=== PATIENT | female | born 1985 | race Caucasian/White ===

== ENCOUNTER 2018-01-07 03:31 | Inpatient (IN) ==
--- OUTSIDE RECORDS SUMMARY | 2018-01-07 06:06 | External Medical Summary | Continuity of Care Document ---
:1985 Author Organization [facility] Address [address] [place], [place] [id number] Phone Care Team Providers Name Role Phone Rosalind Cho MD Unavailable Unavailable Allergies, Adverse Reactions, Alerts Substance Reaction Severity Status AMOXICILLIN TRIHYDRATE bloody stools Unknown Active POTASSIUM CLAVULANATE bloody stools Unknown Active Medications Medication Instructions Dosage Effective Dates Status Comments (start - stop) Tylenol 325 mg take 1 tablet by - Active tablet oral route every 4 hours as needed 28 mg take 1 tablet by Not Available - Active iron-800 mcg oral route every tablet day Problems Condition Effective Dates (start - stop) Clinical Status Matern care for oth or susp poor fetl - grth, 2nd tri, unsp 20 weeks gestation of - Pap Smear Screening, Cervix - Encounter for suprvsn of normal - , first trimester 12 weeks gestation of - Matern care for oth or susp poor fetl - grth, 2nd tri, unsp 15 weeks gestation of - Low Lying Placenta Nos Or W/out - Hemorrhage, Second Trimester 20 weeks gestation of - Asthma Active Migraines Active Active Procedures Procedure Date Ultrasound exam of preg uterus, complete Results Test Name Date and Time Measure Units Reference Range Abnormal Flag Comments Unknown Advance Directives Directive Yes / No Effective Date File Name Unknown Encounters Encounter Practice Location Reason(s) Diagnoses Date Provider Care Description For Visit Team Members Pradeep Howard Low Lying Nov-0 [facility] In [facility]omens Placenta Nos Or 9- Mirna. Zelalem SHELL, W/out 7 700 [address], Hemorrhage, [place], [place], Second Center [id number], [id number] Bhavik Remy weeks gestation 120, tel:[phone] of [place] [address] [place], [id number] , [place]. tel: [phone] Pradeep Howard Matern care for Nov-0 [facility] Ultrasound oth or susp poor 9-201 Mirna. Zelalem SHELL, fetl grth, 2nd 7 [address], tri, unsp20 [place], weeks gestation Center [id number], of Bhavik Remy [place] 120, tel:[phone] [place] [address], [id number] , [place]. tel: [phone] Pradeep Howard Matern care for Oct-1 T[facility] In Womens oth or susp poor 0-201 Mirna. Zelalem SHELL, fetl grth, 2nd 7 700 [address], tri, unsp15 [place], weeks gestation Center [id number], of Bhavik Remy [place] 120, tel:[phone] Lee [address], [id number] , [place]. tel: [phone] Pradeep Howard Pap Smear Sep-1 [facility] In Wom[facility] Screening, [place]. Zelalem SHELL, CervixEncounter 7 700 [address], for suprvsn of [place], [place], normal Center [id number], , first Bhavik Remy [email or web address] 120, tel:[phone] weeks gestation Lee [address] of [place], [id number] , [place]. tel: [phone] Family History Family Member Diagnosis Age At Onset Maternal Grandfather Kidney Disease Brother Hypertension Maternal Grandfather Hypertension No family history of Venous Thrombosis Paternal Grandmother Breast Cancer Paternal Grandfather Cardiovascular Disease Father Cardiovascular Disease Maternal Grandmother Hypertension Paternal Grandfather Hypertension Paternal Grandfather Diabetes Paternal Grandfather Lung Disease No family history of Pulmonary Embolism Immunizations Vaccine Date Status Comments Influenza, injectable, quadrivalent, completed Source: Other Provider preservative free, 3 yrs or older Payers Payer name Insurance type Covered green party ID Authorization(s) [employer] [id number] Social History Type Description Quantity Date Captured Unknown Vital Signs Date / Height Weight BMI Pulse Blood Temperature Respiratory Body Head BMI Time: Rate Pressure Rate Surface Circumference percentile Area Unknown Chief Complaint And Reason For Visit Unknown Chief Complaint And Reason For Visit Reason For Referral Reason For Referral Unknown Plan Of Care Date Type Action Status Appointment Rachel Rudolph BOOKED Future Order: Radiology Order Complete OB Ultrasound > 14 Ordered Weeks ([id number]) Date Type Problem Goal Intervention Status Start Date Unknown. History Of Present Illness Encounter Date Complaint History Of Present Illness This patient has no known history of present illness Functional Status Encounter Date Functional Assessment Cognitive Assessment Unknown Medications Administered Medication Instructions Dosage Effective Dates (start - stop) Status Comments Drug Treatment Unknown Instructions Date Instruction Additional Information HIV and other routine tests risk factors identified by history anticipated course of care nutrition and weight gain counseling, special diet toxoplasmosis precautions (cats / raw meat) sexual activity exercise indications for ultrasound influenza vaccine environmental / work hazards travel use of any medications (including supplements, vitamins, herbs, OTC drugs) domestic violence seat belt use childbirth classes / hospital facilities hospital registration genetic testing new ob handbook Zika virus assessment & precautions
--- OUTSIDE RECORDS SUMMARY | 2018-01-07 06:06 | External Medical Summary | Continuity of Care Document ---
:1985 Author Organization [facility] Address [address] [place], [place] [phone] Phone Care Team Providers Name Role Phone [...] Effective Dates (start - stop) Clinical Status Low Lying Placenta Nos Or W/out - Hemorrhage, Second Trimester 20 weeks gestation of - Pap Smear Screening, Cervix - Encounter for suprvsn of normal - , first trimester 12 weeks gestation of - Matern care for oth or susp poor fetl - grth, 2nd tri, unsp 20 weeks gestation of - Matern care for oth or susp poor fetl - grth, 2nd tri, unsp 15 weeks gestation of - Asthma Active Migraines Active Active Procedures Procedure Date OB Visit No Charge Results Test Name Date and Time Measure Units Reference Range Abnormal Flag Comments Unknown Advance Directives Directive Yes / No Effective Date File Name Unknown Encounters Encounter Practice Location Reason(s) Diagnoses Date Provider Care Description For Visit Team Members Pradeep Howard Low Lying [facility] In W[facility]ens Placenta Nos Or 9-201 Mirna. Zelalem SHELL, W/out 7 700 [address], Hemorrhage, [place], [place], Second Center [id number], [id number] Bhavik Remy weeks gestation 120, tel:[phone] of [place] [address] [place], [id number] , [place]. tel:[phone] Pradeep Howard Matern care for Nov-0 [facility] In Womens Ultrasound oth or susp poor 9-201 Mirna. Zelalem SHELL, fetl grth, 2nd 7 700 [address], tri, unsp20 [place], [place], weeks gestation Center [id number], of Dr Bhavik [place] 120, tel:[phone] Lee [address], [id number] , [place]. tel: [phone] Pradeep Howard Matern care for Oct-1 T[facility] In Womens oth or susp poor 0-201 Mirna. Zelalem SHELL, fetl grth, 2nd 7 700 [address], tri, unsp15 [place], weeks gestation Center [id number], of Bhavik Remy [place] 120, tel:[phone] Lee [address], [id number] , [place]. tel: [phone] Pradeep Howard Pap Smear Sep-1 [facility] In Womens Screening, Mirna. Zelalem SHELL, CervixEncounter 7 700 [address], for suprvsn of [place], [place], normal Center [id number], , first Bhavik Remy [email or web address] 120, tel:[phone] weeks gestation [place] [address] of [place], [id number] , [place]. tel: [phone] Family History Family Member Diagnosis Age At [...] older Payers Payer name Insurance type Covered constitution party ID Authorization(s) [employer] [id number] Social History Type Description Quantity Date Captured Alcohol Use Details No Caffeine Use Details Unknown Tobacco Use Status Unknown Smoking Status Never smoker Vital Signs Date / Height Weight BMI Pulse Blood Temperature Respiratory Body Head BMI Time: Rate Pressure Rate Surface Circumference percentile Area 131.20 21.1 113/71 2017 lbs 7 mm[Hg] 11:08 kg/m AM eter (2) Chief Complaint And Reason For Visit Unknown Chief Complaint And Reason For Visit Reason For Referral Reason For Referral Unknown Plan Of Care Date Type Action Status Appointment Rachel Rudolph BOOKED Future Order: Radiology Order Complete OB Ultrasound > 14 Ordered Weeks ([id number]) Date Type Problem Goal Intervention Status Start [...]
--- OUTSIDE RECORDS SUMMARY | 2018-01-07 06:06 | External Medical Summary | Continuity of Care Document ---
:1985 Author Organization [facility] Address [address] [place], [place] [id number] Phone Care Team Providers Name Role Phone [...] Effective Dates (start - stop) Clinical Status Encounter for suprvsn of normal - , third trimester 34 weeks gestation of - Pap Smear Screening, Cervix - Encounter for suprvsn of normal - , first trimester 12 weeks gestation of - Matern care for oth or susp poor fetl - grth, 2nd tri, unsp 20 weeks gestation of - Matern care for oth or susp poor fetl - grth, 2nd tri, unsp 15 weeks gestation of - Matern care for oth or susp poor fetl - grth, third tri, unsp Low Lying Placenta Nos Or W/out - Hemorrhage, Third Trimester 32 weeks gestation of - Low Lying Placenta Nos Or W/out - Hemorrhage, Second Trimester 20 weeks gestation of - Low Lying Placenta Nos Or W/out - Hemorrhage, Second Trimester Encounter for suprvsn of normal - , second trimester 27 weeks gestation of - Frequency of micturition - Encounter for suprvsn of normal - , second trimester 25 weeks gestation of - Encounter for suprvsn of normal - , third trimester 32 weeks gestation of - Encounter for suprvsn of normal - , third trimester 37 weeks gestation of - Asthma Active Migraines Active Active Procedures Procedure Date OB Visit No Charge Results Test Name Date and Time Measure Units Reference Range Abnormal Flag Comments Unknown Advance Directives Directive Yes / No Effective Date File Name Unknown Encounters Encounter Practice Location Reason(s) Diagnoses Date Provider Care Description For Visit Team Members Pradeep Howard Encounter for Mar-0 [facility] suprvsn of normal 9-201 [facility] [place], , third 8 700 [email or web address] weeks Medical 1522, gestation of [facility] Bhaivk Remy, 120, [id number], [facility] [place], tel:[phone] , [place]. tel:[phone] Pradeep Howard Encounter for Feb-2 [facility] In [facility] suprvsn of normal 0-201 [facility] [place], , third 8 700 [address] [email or web address] weeks Medical 1522, gestation of [facility], Bhavik Remy, 120, [id number], [facility] [place], tel:[phone] , [place]. tel:[phone] Pradeep Howard Encounter for Feb-0 [facility] In [facility]om[facility] suprvsn of normal 1-201 [facility] [place], , third 8 700 [address] [email or web address] weeks Medical 1522, gestation of [facility] Bhavik Remy, 120, [id number], [facility] [place], tel:[phone] , [place]. tel:[phone] Pradeep Howard Matern care for oth Feb-0 T[facility]z In Womens Ultrasound or susp poor fetl 1-201 Mirna. tahmina Garcia, third tri, 8 700 [address] Box unspLow Lying Medical 1522, Placenta Nos Or [facility], W/out Hemorrhage, Bhavik Remy, Third [id number] 120, [id number], weeks gestation of [facility] [place], tel:[phone] , [place]. tel: [phone] [facility] Low Lying Placenta Dec-2 Tamez In Womens Nos Or W/out 9-201 Mirna. Zelalem SHELL, Hemorrhage, Second 7 700 PO Box TrimesterEncounter Medical 1522, for suprvsn of [facility], normal , Bhavik Remy, second [email or web address] 120, , weeks gestation of [facility] [place], tel:[phone] , [place]. tel:[phone] Associates [facility] Frequency of Dec-1 Tamez In Womens micturitionEncounte 5-201 Mirna. Zelalem SHELL r for suprvsn of 7 700 PO [address] normal , Medical 1522, second [email or web address] [facility], weeks gestation of Bhavik Remy, 120, , [facility] [place], tel:[phone] , [place]. tel: [phone] [facility] Low Lying Placenta Nov-0 Tamez In Womens Nos Or W/out -201 Mirna. Zelalem SHELL, Hemorrhage, Second 7 700 [address] [id number] weeks Medical 1522, gestation of [facility], Bhavik Remy, 120, [id number], [facility] [place], tel:[phone] , [place]. tel: [phone] Associates [facility] Matern care for oth Nov-0 Tamez In Womens Ultrasound or susp poor fetl 9-201 Mirna. tahmina Garcia, 2nd tri, 7 700 [address] [email or web address] weeks Medical 1522, gestation of [facility], Bhavik Remy, 120, , [facility] [place], tel:[phone] , [place]. tel:[phone] Pradeep Howard Matern care for oth Jul- Tamez In Womens or susp poor fetl 0-201 Mirna. Health SUMAYA grrio, 2nd tri, 7 700 [address] [email or web address] weeks Medical 1522, gestation of [facility], Bhavik Reym, 120, [id number], [facility] [place], tel:[phone] , [place]. tel: [phone] Pradeep Howard Pap Smear Sep-1 Tamez In Womens Screening, 4-201 Mirna. Health SUMAYA, CervixEncounter for 7 700 [address] Box suprvsn of normal Medical 1522, , first [facility], [email or web address] weeks Bhavik Remy, gestation of 120, , [facility] [place], tel:[phone] , [place]. tel: [phone] Family History Family Member Diagnosis Age At [...] older Payers Payer name Insurance type Covered libertarian ID Authorization(s) [employer] [id number] Social History Type Description Quantity Date Captured Alcohol Use Details No Caffeine Use Details Unknown Tobacco Use Status Unknown Smoking Status Never smoker Vital Signs Date / Height Weight BMI Pulse Blood Temperature Respiratory Body Head BMI Time: Rate Pressure Rate Surface Circumference percentile Area 4 10:16 kg/m AM eter (2) 148.20 23.9 115/76 -2018 lbs 2 mm[Hg] 10:20 kg/m AM eter (2) Chief Complaint And Reason For Visit Unknown Chief Complaint And Reason For Visit Reason For Referral Reason For Referral Unknown Plan Of Care Date Type Action Status Appointment Rachel Rudolph BOOKED Appointment Rachel Rudolph BOOKED Appointment Rachel Rudolph BOOKED Future Order: Radiology Order Complete OB Ultrasound > 14 Ordered Weeks ([id number]) Future Order: Radiology Order Ultrasound OB Follow-up ([id number]) Ordered Date Type Problem Goal Intervention Status Start Date Unknown. History Of Present Illness Encounter Date Complaint History Of Present Illness This patient has no known history of present illness Functional Status Encounter Date Functional Assessment Cognitive Assessment Unknown Medications Administered Medication Instructions Dosage Effective Dates (start - stop) Status Comments Drug Treatment Unknown Instructions Date Instruction Additional Information labor signs group B strep screening gestational glucose lab screening HIV and other routine tests risk factors [...]
--- OUTSIDE RECORDS SUMMARY | 2018-01-07 06:06 | External Medical Summary | Continuity of Care Document ---
:1985 Author Organization [facility] Address [address] [place], [place] [id number] Phone Care Team Providers Name Role Phone [...] Effective Dates (start - stop) Clinical Status Frequency of micturition - Encounter for suprvsn of normal - , second trimester 25 weeks gestation of - Pap Smear Screening, Cervix - Encounter for suprvsn of normal - , first trimester 12 weeks gestation of - Matern care for oth or susp poor fetl - gr, 2nd tri, unsp 20 weeks gestation of [...] second trimester 27 weeks gestation of - Asthma Active Migraines Active Active Procedures Procedure Date OB Visit No Charge Results Test Name Date and Time Measure Units Reference Range Abnormal Flag Comments Panel Description: Bacteria identified in Urine by Culture CULTURE, URINE, SEE NOTE CULTURE, URINE, ROUTINE MICRO ROUTINE 11:14:00 NUMBER: [id number] TEST STATUS: FINAL SPECIMEN SOURCE: URINE SPECIMEN QUALITY: ADEQUATE RESULT: Multiple organisms present, each less than 10,000 CFU/mL. These organisms, commonly found on external and internal genitalia, are considered to be colonizers. No further testing performed.REPORT COMMENT:RFASTING:UNKNOWNTest performed at [facility] [id number] [place] [address]Kbyestum: DEL PINZON DO,MPH Advance Directives Directive Yes / No Effective Date File Name Unknown Encounters Encounter Practice Location Reason(s) Diagnoses Date Provider Care Description For Visit Team Members [facility] Low Lying Placenta Dec-2 Tamez In Womens Nos Or W/out 9-201 Mirna. Health SUMAYA, Hemorrhage, Second 7 700 [address] Box TrimesterEncounter Medical 1522, for suprvsn of [facility], normal , Bhavik Remy, second [email or web address] 120, , weeks gestation of [facility] [place], tel:[phone] , [place]. tel:[phone] Associates [facility] Frequency of Dec-1 Tamez In Womens micturitionEncounte 5-201 Mirna. Health SUMAYA r for suprvsn of 7 700 PO Box normal , Medical 1522, second [email or web address] [facility], weeks gestation of Bhavik Remy, 120, [id number], [facility] [place], tel:[phone] , [place]. tel: [phone] Associates [facility] Low Lying Placenta Nov-0 Tamez In Womens Nos Or W/out 9-201 Mirna. Health SUMAYA, Hemorrhage, Second 7 700 [address] [email or web address] weeks Medical 1522, gestation of [facility], Bhavik Remy, 120, , [facility] [place], tel:[phone] , [place]. tel: [phone] Associates [facility] Matern care for oth Nov-0 Tamez In Womens Ultrasound or susp poor fetl 9-201 Mirna. tahmina Garcia, 2nd tri, 7 700 [address] [email or web address] weeks Medical 1522, gestation of [facility], Bhavik Remy, 120, [id number], [facility] [place], tel:[phone] , [place]. tel: [phone] Pradeep Howard Matern care for oth Oct-1 Tamez In Womens or susp poor fetl 0-201 Mirna. tahmina Garcia, 2nd tri, 7 700 [address] [email or web address] weeks Medical 1522, gestation of [facility], Bhavik Remy, 120, [id number], [facility] [place], tel:[phone] , [place]. tel: [phone] Pradeep Howard Pap Smear Sep-1 Tamez In Womens Screening, 4-201 Mirna. Zelalem SHELL, CervixEncounter for 7 700 [address] Box suprvsn of normal Medical 1522, , first [facility], [email or web address] weeks Bhavik Remy, gestation of 120, [id number], [facility] [place], tel:[phone] , [place]. tel: [phone] Family History Family Member Diagnosis Age At [...] Insurance type Covered constitution party ID [id number] Social History Type Description Quantity Date Captured Alcohol Use Details No Caffeine Use Details Unknown Tobacco Use Status Unknown Smoking Status Never smoker Vital Signs Date / Height Weight BMI Pulse Blood Temperature Respiratory Body Head BMI Time: Rate Pressure Rate Surface Circumference percentile Area 137.50 22.1 lbs 9 mm[Hg] 10:41 kg/m AM eter (2) Chief Complaint And Reason For Visit Unknown Chief Complaint And Reason For Visit Reason For Referral Reason For Referral Unknown Plan Of Care Date Type Action Status Appointment Rachel Rudolph BOOKED Appointment Rachel Rudolph BOOKED Future Order: Radiology Order Complete OB Ultrasound > 14 Ordered Weeks ([id number]) Date Type Problem Goal Intervention Status Start Date Unknown. History Of Present Illness Encounter Date Complaint History Of Present Illness This patient has no known history of present illness Functional Status Encounter Date Functional Assessment Cognitive Assessment Unknown Medications Administered Medication Instructions Dosage Effective Dates (start - stop) Status Comments Drug Treatment Unknown Instructions Date Instruction Additional Information gestational glucose lab screening HIV and other [...]
--- OUTSIDE RECORDS SUMMARY | 2018-01-07 06:06 | External Medical Summary | Continuity of Care Document ---
:1985 Author Organization [facility] Address [address] [place], [place] [id number] Phone Care Team Providers Name Role Phone [...] second trimester 27 weeks gestation of - Pap Smear Screening, [...] Second Trimester 20 weeks gestation of - Frequency of micturition - Encounter for suprvsn of normal - , second trimester 25 weeks gestation of - Asthma Active Migraines Active Active Procedures Procedure Date OB Visit No Charge Results Test Name Date and Time Measure Units Reference Range Abnormal Flag Comments Panel Description: Glucose [Mass/volume] in Serum or Plasma --1 hour post 50 g glucose PO GLUCOSE, 136 mg/dL <140 N Test performed at [facility] SCREEN 10:45:00 DIAGNOSTICS [id number] ([id number] [place] [address]Jyauzlmo: DEL PINZON DO,MPH Panel Description: HEMOGLOBIN + HEMATOCRIT HEMOGLOBIN 10:45:00 12.1 g/dL 11.7-15.5 N HEMATOCRIT 10:45:00 35.7 % 35.0-45.0 N REPORT COMMENT:FASTING :NOTest performed at [facility] [id number] [place] [address]Yuackzyg: DEL PINZON DO,MPH Advance Directives Directive Yes / No Effective Date File Name Unknown Encounters Encounter Practice Location Reason(s) Diagnoses Date Provider Care Description For Visit Team Members [facility] Low Lying Placenta Dec-2 Tamez In Womens Nos Or W/out 9-201 Mirna. Health SUMAYA, Hemorrhage, Second 7 700 [facility], for suprvsn of [facility], normal , Bhavik Remy, second [email or web address] 120, , weeks gestation of [facility] [place], tel:[phone] , [place]. tel: [phone] Associates [facility] Frequency of Dec-1 Tamez In Womens micturitionEncounte 5-201 Mirna. Health SUMAYA, r for suprvsn of 7 700 [address] Box normal , Medical 1522, second [email or web address] [facility], weeks gestation of Bhavik Remy, 120, , [facility] [place], tel:[phone] , [place]. tel:[phone] [facility] Low Lying Placenta Nov-0 Tamez In Womens Nos Or W/out 9-201 [facility]. [facility] [place], Hemorrhage, Second 7 700 PO Box [id number] weeks Medical 1522, [facility], Bhavik Remy, 120, [id number], [facility] [place], tel:[phone] , [place]. tel: [phone] Pradeep Howard Matern care for oth Nov-0 Tamez In Womens Ultrasound or susp poor fetl 9-201 Mirna. tahmina Garcia, 2nd tri, 7 700 [address] [email or web address] weeks Medical 1522, gestation of [facility], Bhavik Remy, 120, [id number], [facility] [place], tel:[phone] , [place]. tel: [phone] Pradeep Howard Matern care for oth Oct-1 Tamez In Womens or susp poor fetl 0-201 Mirna. tahmina Garcia, 2nd tri, 7 700 [address] [email or web address] weeks Medical 1522, gestation of [facility], Bhavik Remy, 120, , [facility] [place], tel:[phone] , [place]. tel: [phone] Pradeep Howard Pap Smear Sep-1 Tamez In Womens Screening, 4-201 Mirna. Zelalem SHELL CervixEncounter for 7 700 PO Box suprvsn of normal Medical 1522, , first [facility], [email or web address] weeks Bhavik Remy, gestation of 120, [id number], [facility] [place], tel:[phone] , [place]. tel: [phone] Family History Family Member Diagnosis Age At [...] older Payers Payer name Insurance type Covered democrat ID Authorization(s) Deshawnna [id number] Social History Type Description Quantity Date Captured Alcohol Use Details No Caffeine Use Details Unknown Tobacco Use Status Unknown Smoking Status Never smoker Vital Signs Date / Height Weight BMI Pulse Blood Temperature Respiratory Body Head BMI Time: Rate Pressure Rate Surface Circumference percentile Area 140.20 22.6 124/84 -2017 lbs 3 mm[Hg] 9:59 kg/m AM eter (2) 9 9:58 kg/m AM eter (2) Chief Complaint And Reason For Visit Unknown Chief Complaint And Reason For Visit Reason For Referral Reason For Referral Unknown Plan Of Care Date Type Action Status Appointment Rachel Rudolph BOOKED Appointment Rachel Rudolph BOOKED Future Order: Radiology Order Complete OB Ultrasound > 14 Ordered Weeks ([id number]) Date Type Problem Goal Intervention Status Start [...]
--- OUTSIDE RECORDS SUMMARY | 2018-01-07 06:06 | External Medical Summary | Continuity of Care Document ---
:1985 Author Organization [facility] Address [address] [place], [place] [id number] Phone Care Team Providers Name Role Phone [...] Effective Dates (start - stop) Clinical Status Pap Smear Screening, Cervix - Encounter for suprvsn of normal - , first trimester 12 weeks gestation of - Asthma Active Migraines Active Active Procedures Procedure Date Pap Smear handling/transport Initial OB Visit No Charge - [facility] No Charge Sonogram OB Prepayment Agreement Urine Culture OB Panel With An HIV Venpnctr fngr/heel/ear stick routne Infct antign, chlamydia trac, ampl Neisseria Gonorrhoeae, Amplification Cult, bactr, ident isolate, urine Results Test Name Date and Time Measure Units Reference Range Abnormal Flag Comments Panel Description: OBSTETRIC PANEL WHITE BLOOD CELL 9.3 Thousand/uL 3.8-10.8 N COUNT 11:03:00 RED BLOOD CELL 4.36 Million/uL 3.80-5.10 N COUNT 11:03:00 HEMOGLOBIN 13.5 g/dL 11.7-15.5 N 11:03:00 HEMATOCRIT 38.5 % 35.0-45.0 N 11:03:00 MCV 88.3 fL 80.0-100.0 N 11:03:00 MCH 31.0 pg 27.0-33.0 N 11:03:00 MCHC 35.1 g/dL 32.0-36.0 N 11:03:00 RDW 12.4 % 11.0-15.0 N 11:03:00 PLATELET COUNT 210 Thousand/uL 140-400 N 11:03:00 MPV 11.2 fL 7.5-12.5 N 11:03:00 ABSOLUTE 6640 cells/uL 9037-0041 N NEUTROPHILS 11:03:00 ABSOLUTE 2055 cells/uL 850-3900 N LYMPHOCYTES 11:03:00 ABSOLUTE 446 cells/uL 200-950 N MONOCYTES 11:03:00 ABSOLUTE 140 cells/uL 15-500 N EOSINOPHILS 11:03:00 ABSOLUTE 19 cells/uL 0-200 N BASOPHILS 11:03:00 NEUTROPHILS 71.4 % N 11:03:00 LYMPHOCYTES 22.1 % N 11:03:00 MONOCYTES 4.8 % N 11:03:00 EOSINOPHILS 1.5 % N 11:03:00 BASOPHILS 0.2 % N 11:03:00 ANTIBODY SCREEN, NO ANTIBODIES N RBC W/REFL ID, 11:03:00 DETECTED Reference range TITER AND AG No antibodies detected This assay is a screening test for the detection of red blood cell antibodies. The test is not to be used for pretransfusion screening or for the medical management of an alloimmunized . ABO GROUP A 11:03:00 RH TYPE RH(D) 11:03:00 POSITIVE RPR (DX) W/REFL NON-REACTIVE NON-REACTIV N TITER AND 11:03:00 E CONFIRMATORY TESTING HEPATITIS B NON-REACTIVE NON-REACTIV N SURFACE ANTIGEN 11:03:00 E RUBELLA ANTIBODY 3.84 index N Index (IGG) 11:03:00 Interpretation ----- <0.90 Not consistent with Immunity 0.90-0.99 Equivocal > or=1.00 Consistent with Immunity The presence of rubella IgG antibody suggests immunization or past or current infection withrubella virus.Test performed at [facility] [place] [address]Kfqzswi r: DEL PINZON DO,MPH Panel Description: HIV 1/2 ANTIGEN/ANTIBODY,FOURTH GENERATION W/RFL HIV NON-REACTIVE NON-REACTIVE N HIV-1 antigen and HIV-1/HIV- 2 antibodies were AG/AB, 11:03:00 notdetected. There is no laboratory evidence of 4TH GEN HIVinfection. PLEASE NOTE: This information has been disclosed toyou from records whose confidentiality may beprotected by state law. If your state requires suchprotection, then the state law prohibits you frommaking any further disclosure of the informationwithout the specific written consent of the personto whom it pertains, or as otherwise permitted by law.A general authorization for the release of medical orother information is NOT sufficient for this purpose. For additional information please refer tohttp://education.[employer]/faq/QWN952(This link is being provided for informational/educational purposes only.) The performance of this assay has not been clinicallyvalidated in patients less than 2 years old. REPORT COMMENT:FASTING:NOTest performed at [facility] [place] [address]Zemsxewl: DEL PINZON DO,MPH Panel Description: Bacteria identified in Urine by Culture CULTURE, URINE, SEE NOTE CULTURE, URINE, ROUTINE MICRO ROUTINE 11:26:00 NUMBER: [id number] TEST STATUS: FINAL SPECIMEN SOURCE: URINE, CLEAN CATCH SPECIMEN QUALITY: ADEQUATE RESULT: Multiple organisms present, each less than 10,000 CFU/mL. These organisms, commonly found on external and internal genitalia, are considered to be colonizers. No further testing performed.REPORT COMMENT:RFASTING:UNKNOWNTest performed at [facility] [address] [address]Bdjxkonl: DEL PINZON DO,MPH Panel Description: CHLAMYDIA/N. GONORRHOEAE RNA, TMA CHLAMYDIA NOT DETECTED NOT DETECTED N TRACHOMATIS RNA, 11:05:00 TMA NEISSERIA NOT DETECTED NOT DETECTED N GONORRHOEAE RNA, 11:05:00 TMA [id number] SEE NOTE This test was 11:05:00 performed using the APTIMA COMBO2 Assay([employer] The analytical performance characteristics of this assay, when used to test SurePath specimens havebeen determined by [employer]. REPORT COMMENT:FASTING:UNKNO WNTest performed at [facility] [address] [address]Knxjtfkh: DEL PINZON DO,MPH Panel Description: Pap Smear With HPV Reflex If ASCUS Document Pap Smear 10:45:00 See scanned report. Advance Directives Directive Yes / No Effective Date File Name Unknown Encounters Encounter Practice Location Reason(s) Diagnoses Date Provider Care Description For Visit Team Members [facility], [facility], [facility] [address], for [place], [place], normal , [place] [id number], first [email or web address] Bhavik Remy US weeks gestation 120, tel:[phone] of [place], [address] [place], [id number] , [place]. tel:[phone] Family History Family Member Diagnosis Age At Onset Maternal Grandfather Kidney Disease Brother Hypertension Maternal Grandfather Hypertension No family history of Venous Thrombosis Paternal Grandmother Breast Cancer Paternal Grandfather Cardiovascular Disease Father Cardiovascular Disease Maternal Grandmother Hypertension Paternal Grandfather Hypertension Paternal Grandfather Diabetes Paternal Grandfather Lung Disease No family history of Pulmonary Embolism Immunizations Vaccine Date Status Comments Unknown Payers Payer name Insurance type Covered libertarian ID [id number] Social History Type Description Quantity Date Captured Alcohol Use Details No Caffeine Use Details coffee 1 cup per day Tobacco Use Status Never smoked tobacco Smoking Status Never smoker Non-Smoking Tobacco Use : No Details Available : No Details Available Details Vital Signs Date / Height Weight BMI Pulse Blood Temperature Respiratory Body Head BMI Time: Rate Pressure Rate Surface Circumference percentile Area 121.60 19.6 120/76 -2017 lbs 3 mm[Hg] 10:29 kg/m AM eter (2) Chief Complaint And Reason For Visit Unknown Chief Complaint And Reason For Visit Reason For Referral Reason For Referral Unknown Plan Of Care Date Type Action Status Appointment Rachel Rudolph BOOKED Date Type Problem Goal Intervention Status Start [...]
--- OUTSIDE RECORDS SUMMARY | 2018-01-07 06:06 | External Medical Summary | Continuity of Care Document ---
:1985 Author Organization [facility] Address [address] [place], [place] [phone] Phone Care Team Providers Name Role Phone [...] tri, unsp 15 weeks gestation of - Pap Smear Screening, [...] Description For Visit Team Members Pradeep Howard Matern care for [facility] o[facility] or susp poor -[facility], fet[facility], 2nd [address], tri, unsp15 weeks Medical [place], [place], gestation of [place] , Dr Bhavik [place] 120, tel:[phone] [place] [address] [place], [id number] , [place]. tel: [phone] Pradeep Howard Pap Smear [facility], [facility], [facility] [address], [facility] [place] [place], normal , [place] [id number], first [id number] Bhavik Remy US weeks gestation 120, tel:[phone] [place] [address] [place], [id number] , [place]. tel: [phone] Family History Family Member Diagnosis Age At [...] older Payers Payer name Insurance type Covered republican ID Authorization(s) [facility] [id number] Social History Type Description Quantity Date Captured Alcohol Use Details No Caffeine Use Details coffee 1 cup per day Tobacco Use Status Never smoked tobacco Smoking Status Never smoker Vital Signs Date / Height Weight BMI Pulse Blood Temperature Respiratory Body Head BMI Time: Rate Pressure Rate Surface Circumference percentile Area 127.00 20.5 126/89 -2017 lbs 0 mm[Hg] 11:20 kg/m AM eter (2) 3 11:20 kg/m AM eter (2) Chief Complaint And Reason For Visit Unknown Chief Complaint And Reason For Visit Reason For Referral Reason For Referral Unknown Plan Of Care Date Type Action Status Appointment Rachel Rudolph BOOKED Appointment Rachel Rudolph BOOKED Date Type Problem [...]
[2018-01-07] MEDS ORDERED: MAG-AL + SIM ORAL LIQUID 30ml PO PRN (06:14)
[2018-01-07] MEDS ORDERED: ACETAMINOPHEN 500 MG TABLET PO PRN (06:14)
[2018-01-07] MEDS ORDERED: METHYLERGONOVINE 0.2 MG/ML INJECTION IM PRN (06:14)
[2018-01-07] MEDS ORDERED: LIDOCAINE 1% (10mg/ml) 2mL INJ PF SDV ID PRN (06:14)
[2018-01-07] MEDS ORDERED: CARBOPROST 250 MCG/ML INJECTION IM PRN (06:14)
[2018-01-07] MEDS ORDERED: CALCIUM CARBONATE Chewable 500mg TABLET PO PRN (06:14)
[2018-01-07] MEDS ORDERED: CLINDAMYCIN PB 900 MG/50 ML BAG IV SCH (06:15)
[2018-01-07] MEDS ORDERED: D5LR 1,000 ML IV SCH (06:15)
[2018-01-07 07:01] VITALS: BMI 24.5
[2018-01-07] MEDS ORDERED: D5LR 1,000 ML IV PRN (07:13)
[2018-01-07] MEDS ORDERED: OXYTOCIN DRIP 30 UNIT/500 ML ML IV PRN (07:13)
[2018-01-07] MEDS: LR 1,000 ML IV PRN ×2 (07:16→10:07)
--- NOTE | 2018-01-07 08:03 | Anesthesia Preoperative Report ---
Anesthesia Epidural/Spinal Rec - Date and Time Date: 01/07/18 Preoperative Diagnosis: Procedure: Labor Epidural Plan: Epidural - Vital Signs /Para: P:1 - Medictaions & Allergies Inpatient Medications: Current Medications Acetaminophen (Tylenol) 500 - 1,000 mg PO Q4H PRN PRN Reason: Pain Al Hydroxide/Mg Hydroxide (Maalox Plus) 30 ml PO Q3H PRN PRN Reason: Indigestion Calcium Carbonate (Tums) 500 - 1,000 mg PO Q2H PRN PRN Reason: Indigestion Carboprost Tromethamine (Hemabate) 250 mcg IM O PRN PRN Reason: .Downtime Clindamycin Phosphate (Cleocin Premix) 900 mg in 50 mls @ 50 mls/hr IV Q8H [facility] Last Admin: 01/07/18 07:00 Dose: 50 mls/hr Dextrose/Lactated Ringer's (Dextrose 5%-Lactated Ringers) 1,000 mls @ 125 mls/ hr IV .Q8H [facility] Last Admin: 01/07/18 07:17 Dose: 125 mls/hr Lactated Ringer's (Lactated Ringers) 1,000 mls @ 999 mls/hr IV .Q1H1M PRN Last Admin: 01/07/18 07:16 Dose: 999 mls/hr Dextrose/Lactated Ringer's (Dextrose 5%-Lactated Ringers) 1,000 mls @ 125 mls/ hr IV .Q8H PRN PRN Reason: Labor Oxytocin (Pitocin Drip) 30 unit in 500 mls @ 2 mls/hr IV .Q24H PRN; Protocol PRN Reason: Induction/Augmentation Last Admin: 01/07/18 07:17 Dose: 2 mls/hr Lidocaine HCl (Xylocaine-Mpf 1% Vial) 0.2 mg ID O PRN PRN Reason: IV Start Methylergonovine Maleate (Methergine) 0.2 mg IM O PRN Misoprostol (Cytotec) 800 mcg AR ONCE PRN Allergies/Adverse Reactions: Allergies Allergy/AdvReac Type Severity Reaction Status Date / Time amoxicillin Allergy Unknown Verified 05/14/16 11:12 clavulanic acid Allergy Unknown Verified 05/14/16 11:12 - Home Medications Home Medications: Home Medications Medication Instructions Recorded Confirmed Type Vit No.130/Iron/Folic 1 tab PO DAILY #0 tab 05/14/16 History [ Tablet] Acetaminophen [Tylenol Extra 1 - 2 tab PO PRN PRN #0 tab 05/30/16 History Strength] diphenhydrAMINE HCl [Benadryl] 2 cap PO PRN PRN #0 cap 05/30/16 History - Medical History Respiratory: Reports: Asthma (adolescant) Neuro/Musculoskeletal: Denies: Depression Other History: Reports: Now DENIES: Anesthesia Reactions, Blood Transfusions - Surgical History HEENT Surgeries: Reports: Tonsillectomy (1992) GI Surgery/Treatments: Reports: Cholecystectomy (2007) Reproductive Surgery/Treatment: DENIES: Section Anesthesia Reactions: None Hx Family Anesthesia Reaction: No History of Motion Sickness: No - Social History Smoking Status: Never smoker Second Hand Exposure: No Substance Use Type: does not use Alcohol Intake Frequency: does not drink Hx Chewing Tobacco Use: No - Pertinent Findings Lab Data: CBC and BMP 01/07/18 06:40 - Physical Exam Respiratory Exam: lungs clear Cardiovascular Exam: regular rate and rhythm, no murmur - Airway Assessment Mallampati Score: I TMD: 3 Fingerbreadths Neck Extension: good Overall Assessment: no airway concerns - ASA ASA Score: 2 - Discussion Discussion: Discussed risks/options/alternatives of anesthesia and questions answered. Patient consents. Nursing pain assessment noted. Anesthesia Discussion: spouse Attestation Statement: Prior to the delivery of any anesthetic medication, I examined the patient, developed the plan, obtained the patient's consent and discussed the risk and benefits of the procedure with the patient/guardian.
[2018-01-07] MEDS ORDERED: ONDANSETRON 4 MG/2 ML INJECTION IVP PRN (11:15)
[2018-01-07] MEDS ORDERED: DiphenhydrAMINE 50 MG/ML INJECTION IVP PRN (11:15)
[2018-01-07] MEDS ORDERED: ROPIVACAINE 1% 10MG/ML INJ 200 MG, SUFentanil 50 MCG in NS 100 ML EPI PRN (11:15)
[2018-01-07] MEDS ORDERED: NALOXONE 0.4 MG/ML INJECTION IVP PRN (11:15)
[2018-01-07] MEDS ORDERED: LIDOCAINE 2%/EPI 1:200,000 20ml SDV PF ONE (11:24)
[2018-01-07] MEDS ORDERED: HYDROCORTISONE 2.5% CREAM 30gm RECTALLY PRN (13:47)
[2018-01-07] MEDS ORDERED: DiphenhydrAMINE 25 MG CAPSULE PO PRN (13:47)
[2018-01-07] MEDS ORDERED: OXYTOCIN DRIP 30 UNIT/500 ML ML IV SCH (14:00)
--- NOTE | 2018-01-07 16:15 | Labor and Delivery Note ---
DATE OF DELIVERY 01/07/2018 JOSE Ramos is a 32-year-old 2, para 1 at 40 weeks gestational age who was brought in for a Pitocin induction this morning. She was started on antibiotics for her group B strep status. Her membranes were ruptured artificially, returning clear fluids. She received an epidural. She progressed steadily throughout labor. She pushed for less than 30 minutes and had a spontaneous vaginal delivery of a viable male , Apgars 8/9. The baby was vigorous at delivery so he was placed on mom's abdomen and the cord clamping was delayed for approximately five minutes. The placenta delivered spontaneously. She had a first-degree laceration that was repaired with 2-0 Vicryl. Mom and baby tolerated the delivery well. He has not been weighed nor does he have a name at this point. [facility]ITAL[facility]rett
[2018-01-07] MEDS: IBUPROFEN 800 MG TABLET PO PRN (17:45)
--- NOTE | 2018-01-07 20:16 | Anesthesia Postoperative Note ---
- Date and Time Date: 01/07/18 Time: 20:16 - Status Patient Participated in Evaluation: Patient Participated in Person Vital Signs: Temperature 98.4 F 01/07/18 17:20 Pulse Rate 81 01/07/18 17:20 Respiratory Rate 16 01/07/18 17:20 Blood Pressure 124/70 01/07/18 17:20 Pulse Oximetry 98 01/07/18 17:20 Respiratory Function: Airway Patent Cardiovascular Function: Regular Pulse Mental Status: Alert and Oriented Pain Intensity: 0 Hydration: Taking PO Fluids Complications During Recover: None Apparent - Follow-Up Instructions Instructions: Per Surgeon
[2018-01-07] MEDS: HYDROCODONE/APAP 5mg/325mg TABLET PO PRN (22:57)
[2018-01-08] MEDS: HYDROCODONE/APAP 5mg/325mg TABLET PO PRN (07:05)
--- NOTE | 2018-01-08 09:29 | OB/GYN Progress Note ---
OB-PP Progress Note - General PPD1 POD:: POD1 Maternal Group B Strep: Positive Maternal blood type: A+ Maternal Rubella Status: Immune - Subjective Date: 01/08/18 Lochia: Minimal Pain: controlled Voiding: voiding Nausea or Vomiting Present: No - Objective Vital Signs: Last Vital Signs Temp 97.7 F 01/08/18 07:00 Pulse 67 01/08/18 07:00 Resp 16 01/08/18 07:00 BP 116/72 01/08/18 07:00 Pulse Ox 97 01/08/18 07:00 Urine Output: good General: alert and oriented Cardiovascular: regular rate,rhythm Respiratory: non-labored Abdomen: fundus firm, non-tender - Assessment Assessment: SP, - Plan Plan: routine care
[2018-01-08] MEDS: DOCUSATE CALCIUM 240 MG CAPSULE PO SCH (09:53)
[2018-01-08] MEDS: IBUPROFEN 800 MG TABLET PO PRN ×2 (09:54→22:25)
[2018-01-08 16:13] VITALS: RESP 16
[2018-01-08 22:28] VITALS: O2SAT 98
[2018-01-09] MEDS: HYDROCODONE/APAP 5mg/325mg TABLET PO PRN (01:12)
[2018-01-09] MEDS: IBUPROFEN 800 MG TABLET PO PRN (08:13)
[2018-01-09 08:20] VITALS: BP 125/79; PULSE 73; TEMP 97.8
[2018-01-09] MEDS: DOCUSATE CALCIUM 240 MG CAPSULE PO SCH (09:21)
--- NOTE | 2018-01-09 13:38 | Progress Note ---
OB PP Progress Note Free Text - Date Date: 01/09/18 - Progress Note Progress Note: vss af doing well desires dc dc instructions reviewed, declines rx/s fu 6 wks q&a-krb
== END 2018-01-09 14:15 | disposition home or self-care (01) | DRG 775 ==
LOC: MC 05:59
PROVIDERS: ADMIT Obstetrics & Gynecology; ATTEND Obstetrics & Gynecology